=== PATIENT | male | born 1955 | race Caucasian/White ===

== ENCOUNTER 2024-08-02 16:59 | Emergency (ER) | payer MEDICARE, SELFPAY ==
--- NOTE | ~2024-08-02 | CT_ITS ---
CT brain wo con Ordering provider: Erin Valdez PA-C History: 69 years Male with . fall from height . Comparison: None. Technique: CT of the head without contrast. FINDINGS: BRAIN PARENCHYMA AND CSF SPACES: Mild leukoaraiosis and diffuse cortical atrophy. Mild atheromatous d isease. No midline shift, mass effect or hemorrhage. The brain parenchyma and CSF spaces are otherwi se normal. 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 VISUALIZED PARANASAL SINUSES: Well aerated. MASTOIDS: Well aerated. BONES: The bones appear intact. SOFT TISSUES: Visualized nasopharynx is normal. Superficial soft tissues are normal. IMPRESSION: No acute intracranial findings. Reviewed, dictated and finalized at location A. MA CENTER TECHNICIAN
--- NOTE | ~2024-08-02 | CT_ITS ---
CT lumbar spine wo con Ordering provider: Erin Valdez History: 69 years Male with . fall from height . Comparison: None. Technique: CT lumbar spine without contrast. Automated exposure control and iterative reconstruction technique were employed. The dose-length product was 1310.53 mGy-cm. FINDINGS: VERTEBRAE: Highly suggestive fracture in the superior endplate of L3. Follow-up advised. Normal heigh t and alignment. No subluxation. Endplate changes seen at the level of L5-S1. DISC SPACES: Narrowing of the disc L1-L2 and L5-S1. Multiple level facet joint disease in the lower l umbar area. T12-L1: No stenosis. L1-L2: No stenosis. L2-L3: No stenosis. L3-L4: Mild spinal canal stenosis secondary to broad based disc bulge, facet arthropathy, and ligamen richard flavum hypertrophy. bilateral narrowing of the foramina and with nerve root compression. L4-L5: Mild spinal canal stenosis secondary to broad based disc bulge, facet arthropathy, and ligame ntum flavum hypertrophy. . Narrowing of the foramina with nerve root compression. L5-S1: No stenosis. Narrowing of the left foramen with root compression. PARASPINOUS SOFT TISSUES: Mild atheromatous disease of the abdominal aorta. Left kidney stone Bilateral sacroiliitis. IMPRESSION: Highly suggestive fracture in the superior endplate of L3. No other definite fractures. Degenerative disc disease at the level of L1-L2 and L5-S1. Left kidney stone. Reviewed, dictated and finalized at location A. ECTOR SCREEN PRINTING IMPRESSION: Highly suggestive fracture in the superior endplate of L3. No other definite fr actures. Degenerative disc disease at the level of L1-L2 and L5-S1. Left kidney stone.
--- NOTE | ~2024-08-02 | XR_ITS ---
XR shoulder RT min 2V Ordering provider: Navya Oswald PA-C History: . fall from ladder . Comparison: None. FINDINGS: BONES: No acute fracture or dislocation. JOINT SPACES: The acromioclavicular joint is normal. The glenohumeral joint is normal. SOFT TISSUES: Normal. IMPRESSION: No acute osseous abnormality right shoulder. Reviewed, dictated and finalized at location A. LENS POLISHER
--- NOTE | ~2024-08-02 | CT_ITS ---
CT cervical spine wo con Ordering provider: Erin Valdez History: . fall from height . Comparison: None. Technique: CT of the cervical spine was performed without contrast. Sagittal and coronal reformatted images were also obtained and reviewed. Automated exposure control and iterative reconstruction beck hnique were employed. The dose-length product was 410.68 mGy-cm. FINDINGS: VERTEBRAE: No subluxation or acute fracture. The occipital condyles are intact. Degenerative spine. DISC SPACES: Degenerative disc disease at the level of C6-C7. Multilevel facet joint disease in the l ower cervical area. Uncovertebral joint osteoarthritic changes at the level of C6-7. Bilateral narrow ing of the foramina at the same level. PARASPINOUS SOFT TISSUES: Tiny right apical pneumothorax. Nodule is seen in the right apical area kati suring 7 mm. Nodule also seen in the left upper lobe measuring 5 mm. IMPRESSION: No acute osseous abnormality cervical spine. Reviewed, dictated and finalized at location A. STRIAL/ORGANIZATIONAL PSYCHOLOGIST
--- NOTE | ~2024-08-02 | CT_ITS ---
CT chest abdomen pelvis w con Ordering provider: Erin Valdez History: . fall from height . Comparison: None. Technique: CT chest, abdomen and pelvis with IV contrast only. Radiation reduction technique utilized .The dose-length product was 1598.87 mGy-cm. 100 mL Omnipaque 350 was given IV. FINDINGS: CHEST: --VISUALIZED THORACIC INLET: Normal. --MEDIASTINUM: Aorta/coronary arteries: The thoracic aorta is normal. Heart/other: The heart is not enlarged. Lymph nodes: No mediastinal or hilar adenopathy. --LUNGS: No pulmonary highly suggestive nodule in the right apical area is seen which measures 8 mm. Scarring is also possible. Follow-up advised. Granuloma seen posteriorly in the right upper lobe. Dep endent atelectatic changes bilaterally. Possible nodule in the left upper lobe measuring 5 mm. Masses . No infiltrates or effusions. Tiny pneumothorax is seen in the right apical area. --MUSCULOSKELETAL: Soft tissues: The superficial soft tissues are normal. Bones: Fracture of the seventh, eighth, ninth, 10th and 11th ribs. Age appropriate degenerative gutierrez es of the spine. ABDOMEN/PELVIS: --MUSCULOSKELETAL: Bones: No acute fracture. Age appropriate degenerative changes of the spine. Superficial soft tissues: The superficial soft tissues are normal. --UPPER ABDOMINAL ORGANS: Liver: Normal. Gallbladder: Contracted. Spleen: Normal. Stomach/duodenum: Normal. Pancreas: Normal. Adrenals: Normal. Kidneys: Normal. --PELVIC ORGANS: The bladder is normal. --BOWEL AND MESENTERY: Colon: No evidence of diverticulitis or colitis.. Appendix is not demonstrated. Small Bowel: Normal. No obstruction. Peritoneum/mesentery: No free air or free fluid. No mesenteric lymphadenopathy. --RETROPERITONEUM: Normal aorta. No retroperitoneal hemorrhage or aortic trauma. No retroperitonea l lymphadenopathy or retroperitoneal hemorrhage. IMPRESSION: CHEST: 1. Tiny right apical pneumothorax. Follow-up advised. 2. Highly suggestive nodules in the apical areas. 6 months follow-up advised. 3. Multiple rib fractures in the right lower extremity ABDOMEN/PELVIS: 1. No evidence of solid organ injury. No vascular or bowel injury seen. 2. No free air or fluid seen. Reviewed, dictated and finalized at location A. EY DISPATCHER
--- NOTE | ~2024-08-02 | CT_ITS ---
CT thoracic spine wo con Ordering provider: Erin Valdez History: . fall from height . Comparison: None Technique: CT thoracic spine without contrast. Automated exposure control and iterative reconstructi on technique were employed. The dose-length product was 1445.92 mGy-cm. FINDINGS: VERTEBRAE: Normal height and alignment. No subluxation or visible acute fracture. DISC SPACES: Narrowing at multiple levels in the mid and lower thoracic area. PARASPINOUS SOFT TISSUES: Normal. IMPRESSION: No acute osseous abnormality of the thoracic spine. Reviewed, dictated and finalized at location A. RY ARTIST
[2024-08-02 17:03] VITALS: BP 156/79; PULSE 62; RESP 20; TEMP 35.9; O2SAT 99
[2024-08-02 17:13] VITALS: BP 130/91; PULSE 61; RESP 18; TEMP 36.6; O2SAT 98
[2024-08-02 17:18] VITALS: BP 130/91; PULSE 61; RESP 19; O2SAT 98
[2024-08-02 17:25] LABS: Basophils Percent Auto 0.5 % (0.2-1.2); Eosinophils Absolute Auto 0.2 K/mm3 (0-0.3); Eosinophils Percent Auto 1.8 % (0-4.4); Hematocrit 43.1 % (42.0-52.0); Hemoglobin 14.2 g/dL (14.0-18.0); Immature Granulocyte Percent A 1.2 % (0-0.5); Lymphocytes Absolute Auto 2.16 K/mm3 (0.9-3.2); Lymphocytes Percent Auto 25.2 % (18.3-44.2); Mean Corpuscular HGB Conc 32.9 g/dl (32-36); Mean Corpuscular Hemoglobin 30.1 pg (26-34); Mean Corpuscular Volume 91.3 fl (80-100); Monocytes Absolute Auto 0.5 K/mm3 (0.1-0.6); Monocytes Percent Auto 5.6 % (2.6-8.5); Neutrophils Absolute Auto 5.6 K/mm3 (1.3-6.7); Neutrophils Percent Auto 65.7 % (45.5-73.1); Platelet Count Result 180 k/mm3 (150-375); Red Blood Count 4.72 M/mm3 (4.6-6.20); Red Cell Distribution Width 12.6 % (11.5-14.5); White Blood Count 8.6 K/mm3 (4.5-10.0)
[2024-08-02 17:35] LABS: Alanine Aminotransferase 45 U/L (6-50); Albumin Level 4.4 g/dL (3.5-5.1); Alkaline Phosphatase 75 U/L (38-126); Anion Gap 4 mmol/L (4-12); Aspartate Amino Transferase 78 U/L (17-59); Bilirubin,Total 0.6 mg/dL (0.2-1.3); Blood Urea Nitrogen 19 mg/dL (9-20); Calcium 8.7 mg/dL (8.4-10.2); Carbon Dioxide 28 mmol/L (22-30); Chloride 104 mmol/L (98-107); Estimated CRCL calculation 60 ml/min; Estimated Glomerular Filt Rate 60; Glucose 103 mg/dL (65-110); Sodium 136 mmol/L (137-145)
[2024-08-02 17:40] LABS: Prothrombin Time 13.6 Seconds (11.1-14.7)
[2024-08-02 17:41] LABS: Partial Thromboplastin Time 31.5 Seconds (22.3-36.8)
[2024-08-02 17:46] VITALS: BP 132/71; PULSE 69; RESP 15; TEMP 36.6
--- NOTE | 2024-08-02 18:31 | ED_ITS ---
HPI - Fall General Chief Complaint: Fall Stated Complaint: Fell off ladder, Right shoulder pain, Time Seen by Provider: 08/02/24 17:46 Source: patient Mode of arrival: ambulatory Limitations: no limitations History of Present Illness HPI Narrative: Patient is a 69 y/o male who presents to the ED with c/o a fall from a ladder. Patient reports he was at least 10 ft up on a ladder trimming a branch when the branch fell and hit the ladder causing him to fall. Patient reports he fell mostly onto his R side. Does not think he hit his head. Denied LOC. Remembers the entire fall. C/o pain to his neck, R shoulder, R ribs, R hip. Denies SOB. Denies CP, abd pain, dizziness, numbness/tingling. Patient is not on any blood thinners. Related Data Allergies Allergy/AdvReac Type Severity Reaction Status Date / Time No Known Allergies Allergy Verified 08/02/24 17:01 Review of Systems Review of Systems: All systems reviewed & are unremarkable except as noted in HPI. All systems reviewed & are unremarkable except as noted in HPI and below Exam Narrative: GENERAL: Well appearing, well-nourished, non-toxic, in no acute distress. HEAD: Normocephalic, atraumatic. EYES: PERRL/EOMI, conjunctiva clear NECK: C-collar in place. RESPIRATORY: Airway patent, respirations nonlabored. Clear to auscultation bilaterally, no rales, rhonchi, wheezing. CARDIOVASCULAR: Regular rate and rhythm without murmurs, rubs, or gallops. ABDOMINAL: Soft, nontender, nondistended. Normoactive BS. MUSCULOSKELETAL: No gross deformities. Limited ROM of R shoulder/RUE d/t pain. Mild anterior protrusion of R prox humeral head w/o palpable dislocation deformity. No significant tenderness along anterior lateral rib cages. Sensation intact throughout extremities. No tenderness over hips mele. Stable pelvis. SKIN: Warm, dry, normal color. NEURO: A&O X3. Speech clear. Cranial nerves II-XII grossly intact. No ataxic movements. PSYCHIATRIC: Appropriate mood and affect. Normal interaction. Course Vital Signs Vital signs: Vital Signs Temperature 96.7 F L 08/02/24 17:03 Pulse Rate 62 08/02/24 17:03 Respiratory Rate 20 08/02/24 17:03 Blood Pressure 156/79 H 08/02/24 17:03 Pulse Oximetry 99 08/02/24 17:03 Oxygen Delivery Room Air 08/02/24 17:03 Temperature 97.9 F 08/02/24 17:46 Pulse Rate 64 08/02/24 20:25 Respiratory Rate 15 08/02/24 20:25 Blood Pressure 148/84 H 08/02/24 20:25 Pulse Oximetry 96 08/02/24 20:25 Oxygen Delivery Room Air 08/02/24 17:13 MDM - Fall MDM Narrative Medical decision making narrative: Patient presented to ED status post fall from elevated height. Denied head injury or LOC. Denied prodromal symptoms prior to the fall. 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 Complaining of pain mostly to right shoulder. X-ray of right shoulder without fracture or dislocation. CT brain and cervical spine without traumatic findings. CT of chest/abdomen/pelvis showing fractures of ribs 7-11 with tiny apical pneumothorax. CT imaging of L spine also showing superior endplate fracture of L3. Patient is neurologically intact. No evidence of cord compression or cauda equina at this time. Vital signs are stable at this time. Patient does not seem to be in any acute distress. His oxygen is remaining stable on room air. No O2 requirement this time. However given multiple fracture findings, will transfer for trauma eval. Discussed case with Dr Lopez, EDP @ [facility], accepted patient for transfer. Patient and family in agreement with plan. ALS transport. Medical Records Attestation: I reviewed the patient's medical records. Lab Data Attestation: I reviewed the patient's lab results. 08/02/24 17:19 08/02/24 17:19 Labs: Lab Results 08/02/24 Range/Units 17:19 WBC 8.6 (4.5-10.0) K/mm3 RBC 4.72 (4.6-6.20) M/mm3 Hgb 14.2 (14.0-18.0) g/dL Hct 43.1 (42.0-52.0) % MCV 91.3 (80-100) fl MCH 30.1 (26-34) pg MCHC 32.9 (32-36) g/dl RDW 12.6 (11.5-14.5) % Plt Count 180 (150-375) k/mm3 MPV 9.0 (7.4-10.4) fl Immature Gran % (Auto) 1.2 H (0-0.5) % Neut % (Auto) 65.7 (45.5-73.1) % Lymph % (Auto) 25.2 (18.3-44.2) % Lea % (Auto) 5.6 (2.6-8.5) % Eos % (Auto) 1.8 (0-4.4) % Baso % (Auto) 0.5 (0.2-1.2) % Lymph # (Auto) 2.16 (0.9-3.2) K/mm3 Lea # (Auto) 0.5 (0.1-0.6) K/mm3 Eos # (Auto) 0.2 (0-0.3) K/mm3 Baso # (Auto) 0.0 (0.0-0.1) K/mm3 Abs Immat Gran (auto) 0.10 H (0.00-0.031) K/mm3 Absolute Neuts (auto) 5.6 (1.3-6.7) K/mm3 Absolute Nucleated RBC 0.000 (0.0-0.012) K/mm3 Nucleated RBC % 0.0 (0.0-0.2) % PT 13.6 (11.1-14.7) Seconds INR 1.0 APTT 31.5 (22.3-36.8) Seconds Sodium 136 L (137-145) mmol/L Potassium 4.0 (3.4-5.0) mmol/L Chloride 104 (98-107) mmol/L Carbon Dioxide 28 (22-30) mmol/L Anion Gap 4 (4-12) mmol/L BUN 19 (9-20) mg/dL Creatinine 1.20 (0.7-1.3) mg/dL Estim Creat Clear Calc 60 ml/min Estimated GFR 60 (59 - ) Glucose 103 (65-110) mg/dL Calcium 8.7 (8.4-10.2) mg/dL Total Bilirubin 0.6 (0.2-1.3) mg/dL AST 78 H (17-59) U/L ALT 45 (6-50) U/L Alkaline Phosphatase 75 (38-126) U/L Total Protein 8.0 (6.3-8.2) g/dL Albumin 4.4 (3.5-5.1) g/dL Imaging Data Attestation: I personally reviewed and interpreted this imaging study as follows: Radiologist's impression: ITS Impressions Head CT 08/02/24 18:20 IMPRESSION: No acute intracranial findings. Cervical Spine CT 08/02/24 18:30 IMPRESSION: No acute osseous abnormality cervical spine. Chest/Abdomen/Pelvis CT 08/02/24 18:39 IMPRESSION: CHEST: 1. Tiny right apical pneumothorax. Follow-up advised. 2. Highly suggestive nodules in the apical areas. 6 months follow-up advised. 3. Multiple rib fractures in the right lower extremity ABDOMEN/PELVIS: 1. No evidence of solid organ injury. No vascular or bowel injury seen. 2. No free air or fluid seen. Shoulder X-Ray 08/02/24 19:05 IMPRESSION: No acute osseous abnormality right shoulder. Thoracic Spine CT 08/02/24 19:07 IMPRESSION: No acute osseous abnormality of the thoracic spine. Lumbar Spine CT 08/02/24 19:14 IMPRESSION: Highly suggestive fracture in the superior endplate of L3. No other definite fractures. Degenerative disc disease at the level of L1-L2 and L5-S1. Left kidney stone. Discharge Plan Discharge Clinical Impression: Multiple fractures of ribs of right side, Pneumothorax, Fall from ladder, Closed L3 vertebral fracture, Strain of right shoulder Patient Disposition: Acute Care Hospital Condition: Serious Follow-up/Referrals: PHYSICIAN NOT ON STAFF,NONSTAFF [Non-Staff] -
[2024-08-02] MEDS: MORPHINE SULFATE (*CRX) 4 MG/ML INJ IV PUSH (20:06)
[2024-08-02] MEDS: ONDANSETRON INJ 4 MG/2 ML VIAL IV PUSH (20:06)
[2024-08-02 20:11] VITALS: BP 148/74; PULSE 64; RESP 15; O2SAT 96
[2024-08-02 20:25] VITALS: BP 148/84; PULSE 64; RESP 15; O2SAT 96
== END 2024-08-02 20:37 | disposition short-term general hospital (02) ==
PROVIDERS: Physician Assistant; Emergency Provider Physician Assistant
DX: S22.41XA Multiple fractures of ribs, right side, initial encounter for closed fracture (principal); S32.039A Unspecified fracture of third lumbar vertebra, initial encounter for closed fracture; S43.401A Unspecified sprain of right shoulder joint, initial encounter; J93.9 Pneumothorax, unspecified; W11.XXXA Fall on and from ladder, initial encounter
CPT/HCPCS: 36415; 70450; 71260; 72125; 72128; 72131; 73030; 74177; 80053; 85025; 85610; 85730; 96374; 96375; 99285; J2270; J2405; Q9967